=== PATIENT | male | born 1965 | race Caucasian/White ===

== ENCOUNTER 2023-10-31 07:05 | Inpatient (IN) ==
[2023-10-25 11:21] LABS: Basophils # (Auto) 0.04 K/mcL (0.00-0.30); Basophils % (Auto) 0.5 % (0.0-2.0); Eosinophils # (Auto) 0.48 K/mcL (0.00-0.70); Eosinophils % (Auto) 5.7 % (0.0-7.0); Hematocrit 43.3 % (40.1-51.0); Hemoglobin 14.8 g/dL (13.7-17.5); Lymphocytes # (Auto) 2.45 K/mcL (1.50-4.80); Mean Cell Volume 84.7 fL (80.0-100.0); Mean Corpuscular HGB Conc 34.2 g/dL (31.0-36.0); Mean Platelet Volume 10.1 fL (8.8-12.5); Monocytes # (Auto) 0.62 K/mcL (0.10-0.90); Monocytes % (Auto) 7.3 % (1.0-12.0); Neutrophils % (Auto) 57.3 % (38.0-78.0); Platelet Count 244 K/mcL (140-440); RBC 5.11 M/mcL (4.63-6.08); Red Cell Distribution Width 12.1 % (11.5-14.5); WBC 8.5 K/mcL (4.5-11.0)
[2023-10-25 11:35] LABS: ALT/SGPT 11 U/L (<40); AST/SGOT 18 U/L (<40); Albumin 4.6 gm/dL (3.2-5.2); Albumin/Globulin Ratio 1.5 (1.0-2.3); Alkaline Phosphatase 108 U/L (39-117); Bilirubin,Total 0.5 mg/dL (0.1-1.0); Blood Urea Nitrogen 14 mg/dL (6-20); Calcium 9.4 mg/dL (8.6-10.4); Carbon Dioxide 28 mmol/L (22-30); Chloride 103 mmol/L (96-108); Glomerular Filtration Rate 94; Glucose 104 mg/dL (70-105); Potassium 4.1 mmol/L (3.3-5.1); Sodium 140 mmol/L (133-145)
[2023-10-25 12:09] LABS: Appearance,Urine Clear (Clear); Bilirubin,Urine Negative (Negative); Color,Urine Yellow; Culture Indicated,Urine No; Glucose,Urine (UA) Negative (Negative); Ketones,Urine Negative (Negative); Leukocyte Esterase,Urine Negative /uL (Negative); Nitrate,Urine Negative (Negative); PH,Urine 5.5 (5.0-9.0); Protein,Urine Negative (Negative); Specific Gravity,Urine >= 1.030 (1.000-1.035); Urine Blood Negative ery/mcL (Negative); Urobilinogen,Urine Normal
[2023-10-25 14:43] LABS: INR 0.9 (0.9-1.1); Prothrombin Time 13.1 sec (11.9-14.5)
[2023-10-25 14:48] LABS: Hemoglobin A1C 5.7 % Hgb (4.0-6.0)
[2023-10-31] MEDS ORDERED: SCOPOLAMINE 1 PATCH PATCH TOPICAL PRN (08:00)
[2023-10-31] MEDS ORDERED: IPRATROPIUM/ALBUTEROL 3 ML AMPUL.NEB NEB PRN ×2 (08:00→12:05)
[2023-10-31] MEDS: ACETAMINOPHEN 500 MG TABLET PO SCH (08:22)
[2023-10-31] MEDS: oxyCODONE 10 MG TAB.ER.12H PO SCH (08:22)
[2023-10-31] MEDS: CELECOXIB 200 MG CAPSULE PO SCH (08:22)
[2023-10-31] MEDS: GABAPENTIN 300 MG CAPSULE PO SCH ×2 (08:23→20:15)
[2023-10-31] MEDS ORDERED: LIDOCAINE 2% PF 5 ML VIAL ONE (10:28)
[2023-10-31] MEDS ORDERED: DEXAMETHASONE 10 MG/ML VIAL ONE (10:28)
[2023-10-31] MEDS ORDERED: ONDANSETRON 4 MG/2 ML VIAL ONE (10:28)
[2023-10-31] MEDS ORDERED: MAGNESIUM SULFATE 2 GM/50 ML BAG IV ONE (10:28)
[2023-10-31] MEDS ORDERED: fentaNYL 100 MCG/2 ML VIAL ONE (10:28)
[2023-10-31] MEDS ORDERED: KETAMINE 50 MG/ML Syringe IV ONE (10:28)
[2023-10-31] MEDS ORDERED: PROPOFOL 200 MG/20 ML VIAL IV ONE (10:28)
[2023-10-31] MEDS ORDERED: ROPIVACAINE HCL/PF 30 ML VIAL IJ ONE (10:30)
[2023-10-31] MEDS: ceFAZolin 2 GM in DEXTROSE 5% IN WATER 50 ML IV SCH (10:45)
[2023-10-31] MEDS ORDERED: GLYCOPYRROLATE 0.2 MG/ML VIAL IV ONE (11:45)
[2023-10-31] MEDS ORDERED: NALOXONE HCL 0.4 MG/ML VIAL IV PRN (12:05)
[2023-10-31] MEDS ORDERED: ONDANSETRON 4 MG/2 ML VIAL IV PRN (12:05)
[2023-10-31] MEDS ORDERED: diphenhydrAMINE 50 MG/ML VIAL IV PRN (12:05)
[2023-10-31] MEDS ORDERED: LACTATED RINGERS 250 ML IV PRN (12:05)
[2023-10-31] MEDS ORDERED: MEPERIDINE 25 MG/ML VIAL IV PRN (12:05)
[2023-10-31] MEDS ORDERED: ACETAMINOPHEN 325 MG TABLET PO PRN (12:21)
[2023-10-31] MEDS ORDERED: BISACODYL 10 MG SUPP.RECT PR PRN (12:21)
[2023-10-31] MEDS ORDERED: NAPROXEN 500 MG TABLET PO PRN (12:23)
[2023-10-31] MEDS: 0.9 % SODIUM CHLORIDE 9 ML, KETOROLAC 30 MG, ROPIVACAINE HCL/PF 49.5 ML, EPINEPHrine 0.... IJ SCH (12:25)
[2023-10-31] MEDS: METHOCARBAMOL 1,000 MG/10 ML VIAL IV PRN (12:53)
[2023-10-31] MEDS: fentaNYL 100 MCG/2 ML VIAL IV PRN (12:55)
[2023-10-31] MEDS: TRANEXAMIC ACID 1,000 MG/10 ML VIAL IV ONE (12:57)
[2023-10-31] MEDS ORDERED: ACETAMINOPHEN 500 MG TABLET PO SCH (13:00)
[2023-10-31] MEDS: HYDROmorphone 0.5 MG/0.5 ML SYRINGE IV PRN (13:16)
[2023-10-31] MEDS: HYDROmorphone 1 MG/ML SYRINGE IV PRN (14:02)
[2023-10-31] MEDS: 0.45 % SODIUM CHLORIDE 1,000 ML IV SCH (14:03)
[2023-10-31] MEDS: LACTATED RINGERS 1,000 ML IV SCH (14:16)
[2023-10-31] MEDS: oxyCODONE/APAP 5/325MG TABLET PO PRN (17:42)
[2023-10-31] MEDS: ceFAZolin 1 GM VIAL IV SCH (17:42)
[2023-10-31] MEDS: 0.9 % SODIUM CHLORIDE 10 ML SYRINGE IV SCH (17:44)
[2023-10-31] MEDS: KETOROLAC 15 MG/ML VIAL IV SCH (17:44)
[2023-10-31] MEDS: LISINOPRIL 10 MG TABLET PO SCH (20:14)
[2023-10-31] MEDS: ASPIRIN 81 MG TAB.CHEW PO SCH (20:15)
[2023-10-31] MEDS: ATORVASTATIN 10 MG TABLET PO SCH (20:15)
[2023-11-01] MEDS: VITAMIN D3 25 MCG TABLET PO SCH (09:06)
[2023-11-01] MEDS ORDERED: NAPROXEN 250 MG TABLET PO PRN (11:57)
== END 2023-11-01 12:50 | disposition home or self-care (01) | DRG 489 ==
LOC: MEDSUR 07:05 → EDSTATUS 12:15
PROVIDERS: ADMIT Orthopaedic Surgery; ATTEND Orthopaedic Surgery